=== PATIENT | female | born 2000 | race Two or more races ===

== ENCOUNTER 2021-03-04 04:53 | Inpatient (IN) | payer OTHER ==
[~2021-03-04] VITALS: Ht 162.6 cm; Wt 2.7 kg
[2021-03-04] MEDS ORDERED: PRENATAL TABLE1 EAC3 (05:41)
[2021-03-07] MEDS ORDERED: IBUPROFEN800 MG PO (13:33)
[2021-03-07] MEDS ORDERED: SIMETHICONE125 M1 PO (13:33)
[2021-03-07] MEDS ORDERED: SENOKOT8.6 M1 PO (13:33)
== END 2021-03-07 14:27 | disposition home or self-care (01) | DRG 788 ==
LOC: O/R 04:53 → LDR 04:53 → O/R 21:13 → OB/GYN 03-05 11:19
PROVIDERS: ADMIT Obstetrics & Gynecology; ATTEND Obstetrics & Gynecology
PROC: 4A1HXFZ Monitoring of Products of Conception, Cardiac Rhythm, External Approach (ICD-10-PCS; 2021-03-04)
PROC: 10D00Z1 Extraction of Products of Conception, Low, Open Approach (ICD-10-PCS; principal; 2021-03-04 17:45)
DX: O76 Abnormality in fetal heart rate and rhythm complicating labor and delivery (principal); O64.0XX0 Obstructed labor due to incomplete rotation of fetal head, not applicable or unspecified; Z3A.40 40 weeks gestation of pregnancy; Z37.0 Single live birth

== ENCOUNTER 2021-03-10 18:26 | Inpatient (IN) | payer OTHER ==
[~2021-03-10] VITALS: Ht 160 cm; Wt 77.1 kg
[~2021-03-10 18:26] MED LIST: IBUPROFEN800 MG PO; PRENATAL TABLE1 EAC3; SENOKOT8.6 M1 PO; SIMETHICONE125 M1 PO
== END 2021-03-15 18:18 | disposition home or self-care (01) | DRG 776 ==
LOC: ER 18:26 → SURH 20:15 → SEC-K 20:15 → SURH 03-11 15:50
PROVIDERS: ADMIT Obstetrics & Gynecology; ATTEND Obstetrics & Gynecology
PROC: 0J9C3ZZ Drainage of Pelvic Region Subcutaneous Tissue and Fascia, Percutaneous Approach (ICD-10-PCS; principal; 2021-03-12)
DX: O86.01 Infection of obstetric surgical wound, superficial incisional site (principal); Z20.822 Contact with and (suspected) exposure to COVID-19